=== PATIENT | male | born 2000 | race Two or more races ===

== ENCOUNTER 2020-06-07 20:56 | Emergency (ER) | payer SELFPAY ==
[~2020-06-07] VITALS: Ht 170.2 cm; Wt 63.6 kg
[2020-06-07 22:08] VITALS: BP 102/59
[2020-06-07] MEDS ORDERED: TETRACAINE 0.5% OPHTH SOLUTION 4ML BOTTLE. OS ONE (22:30)
--- NOTE | 2020-06-07 22:57 | PHYS DOC ---
Past Medical History Past Medical History: No Pertinent History Past Surgical History: No Surgical History Smoking Status: Never Smoker Alcohol Use: None General Adult EDM: Chief Complaint: FOREIGN BODY/EYES HPI: HPI: Patient is a 20 year old presents for evaluation of foreign body sensation in left eye. Patient states foreign body in left eye yesterday. He believes is either piece of wood or metal. Patient states his he is unsure of his tetanus status. Review of Systems: Review of Systems: Constitutional: Denies fever or chills. [] Eyes: positive eye pain HENT: Denies nasal congestion or sore throat. [] Respiratory: Denies cough or shortness of breath. [] Cardiovascular: Denies chest pain or edema. [] GI: Denies abdominal pain, nausea, vomiting, bloody stools or diarrhea. [] : Denies dysuria. [] Musculoskeletal: Denies back pain or joint pain. [] Integument: Denies rash. [] Neurologic: Denies headache, focal weakness or sensory changes. [] Endocrine: Denies polyuria or polydipsia. [] Lymphatic: Denies swollen glands. [] Psychiatric: Denies depression or anxiety. [] Heart Score: Risk Factors: Risk Factors: DM, Current or recent (<one month) smoker, HTN, HLP, family history of CAD, obesity. Risk Scores: Score 0 - 3: 2.5% MACE over next 6 weeks - Discharge Home Score 4 - 6: 20.3% MACE over next 6 weeks - Admit for Clinical Observation Score 7 - 10: 72.7% MACE over next 6 weeks - Early Invasive Strategies Current Medications: Current Medications Medications (Trade) Dose Ordered Sig/[facility] Start Time Stop Time Status Last Admin Dose Admin Tetracaine HCl (Tetracaine) 1 drop 1X ONCE 06/07/20 22:30 06/07/20 22:31 DC 06/07/20 22:37 1 DROP Allergies: Allergies: Allergies Coded Allergies Type Severity Reaction Last Updated Verified No Known Drug Allergies 06/07/20 No Physical Exam: PE: Constitutional: Well developed, well nourished, no acute distress, non-toxic appearance. [] HENT: Normocephalic, atraumatic, bilateral external ears normal, oropharynx moist, no oral exudates, nose normal. [] Eyes: PERRLA, EOMI, conjunctiva normal, no discharge. [mental fb left eye conrnea-- 4 oclock position] Neck: Normal range of motion, no tenderness, supple, no stridor. [] Cardiovascular:Heart rate regular rhythm, no murmur [] Lungs & Thorax: Bilateral breath sounds clear to auscultation [] Abdomen: Bowel sounds normal, soft, no tenderness, no masses, no pulsatile masses. [] Skin: Warm, dry, no erythema, no rash. [] Back: No tenderness, no CVA tenderness. [] Extremities: No tenderness, no cyanosis, no clubbing, ROM intact, no edema. [] Neurologic: Alert and oriented X 3, normal motor function, normal sensory function, no focal deficits noted. [] Psychologic: Affect normal, judgement normal, mood normal. [] Current Patient Data: Vital Signs: Vital Signs Date Time Temp Pulse Resp B/P (MAP) Pulse Ox O2 Delivery O2 Flow Rate FiO2 06/07/20 22:08 98.5 74 16 102/59 (73) 100 Room Air 98.5 EKG: EKG: [] Radiology/Procedures: Radiology/Procedures: [] Course & Med Decision Making: Course & Med Decision Making Pertinent Labs and Imaging studies reviewed. (See chart for details) []Anesthesia left eye tetracaine. Metallic foreign body removed Rust ring removed Tetanus was updated. Patient discharged home on antibiotic eyedrops. Patient referred to ophthalmology. Malia Disclaimer: Malia Disclaimer: This electronic medical record was generated, in whole or in part, using a voice recognition dictation system. Departure Departure Impression: Primary Impression: Corneal foreign body Disposition: 01 HOME, SELF-CARE Condition: STABLE Referrals: Earline GALE MD Patient Instructions: Eye - Corneal Foreign Body, Eye - Foreign Body Scripts Polymyxin B Sulf/Trimethoprim (POLYMYXIN B-TMP EYE DROPS) 10 Ml Drops 1 DROP EACHEYE TID for 7 Days, #10 ML 0 Refills Prov: ANDRES LOVE DO 06/07/20 Justicifation of Admission Dx: Justifications for Admission: Justification of Admission Dx: N/A ANDRES LOVE DO Jun 07, 2020 22:57
[2020-06-07] MEDS ORDERED: POLY10DR3 EACHEYE (23:25)
[2020-06-07] MEDS ORDERED: FLUORESCEIN OPHTH TEST STRIP. OD ONE (23:30)
[2020-06-07] MEDS ORDERED: DIPH,PERTUSS(ACELL),TET VAC/PF 0.5 ML SYRINGE. VAX IM ONE (23:45)
== END 2020-06-08 00:12 | disposition home or self-care (01) ==
LOC: ER 20:56
DX: T15.02XA Foreign body in cornea, left eye, initial encounter (principal); X58.XXXA Exposure to other specified factors, initial encounter; Y93.89 Activity, other specified; Y92.89 Other specified places as the place of occurrence of the external cause; Y99.8 Other external cause status
CPT/HCPCS: 90471; 90715; 99284